=== PATIENT | male | born 1930 | race Caucasian/White ===

== ENCOUNTER → 2019-01-29 | Day surgery (SDC) | payer OTHER ==
[~2019-01-29] VITALS: Ht 175.3 cm; Wt 102.1 kg
[~2019-01-29] MED LIST: ASPIR 8181 MG PO; AVAPRO300 MG PO; B COMPLEX1 EACH PO; BUMETANIDE 1 MG1 M1 PO; ELIQUIS5 MG PO; FISH OIL 1,001000 M2 PO; ISOSORBIDE MON120 MG PO; LOPRESSOR100 M1 PO; MAGOX 400400 MG PO; OS-CAL 500+D31 EAC1 PO; POTASSIUM20 PO; PRAVASTATIN SOD80 MG PO; RAPAFLO4 MG PO; VENTOLIN HFA 1818 GM INH; ZINC50 M1 PO
== END | disposition home or self-care (01) ==
LOC: OR 06:52 → TBA 07:03 → OR 09:44
DX: H02.105 Unspecified ectropion of left lower eyelid (principal); H02.102 Unspecified ectropion of right lower eyelid; Z53.8 Procedure and treatment not carried out for other reasons; I10 Essential (primary) hypertension; G47.33 Obstructive sleep apnea (adult) (pediatric); I48.91 Unspecified atrial fibrillation; E78.5 Hyperlipidemia, unspecified; Z95.0 Presence of cardiac pacemaker; Z87.442 Personal history of urinary calculi; Z87.891 Personal history of nicotine dependence; Z98.890 Other specified postprocedural states; Z86.73 Personal history of transient ischemic attack (TIA), and cerebral infarction without residual deficits; Z79.899 Other long term (current) drug therapy; Z98.52 Vasectomy status; Z98.41 Cataract extraction status, right eye; Z98.42 Cataract extraction status, left eye